=== PATIENT | female | born 1985 | race African-American/Black ===

== ENCOUNTER 2018-08-15 19:50 | Emergency (ER) | payer MEDICAID ==
--- NOTE | 2018-08-15 20:18 | EDM.PDOC ---
ED HPI GENERAL MEDICAL PROBLEM - General Chief Complaint: Abdominal Pain Stated Complaint: PT HAS STOMACH PAINS Time Seen by Provider: 08/15/18 20:14 - History of Present Illness INITIAL COMMENTS - FREE TEXT/NARRATIVE: HISTORY AND PHYSICAL: History of present illness: The patient is a 32-year-old female who presents with lower abdominal pain/ pelvic pain that started 6:30pm yesterday and has been persistent. The patient tells me that she started her menstrual cycle yesterday and today is day 2. The patient tells me that the pain is diffuse in the lower abdomen and does not localize right or left and came on gradually and was not sudden. She has no flank pain no vomiting but does have nausea and no fevers or chills. She has no upper abdominal pain no upper respiratory symptoms and she describes the pain as a cramping aching deep pain. She says it's worse with any movement. The patient does have a significant surgical history for a and bilateral ectopic pregnancies both of which required surgical repair of the tubes. She says she was told by the electrical cad designer she would never get again because of the scarring on the tubes. She says that the period that started yesterday was her regular time and she has not had sexual intercourse for several months. She says she is not using contraception and has not done home test. She tells me that prior to the start of her period yesterday she did not have any abnormal vaginal discharge or vaginal pain. She has no history of ovarian cysts and no other GI history. She says she's been having normal bowel movements are not black or bloody and there is no diarrhea. She has not taken anything but Aleve at home for pain. She tells me that she does not have particularly heavy periods and this one is also not heavy and she does have some cramping but this pain is very different. Review of systems: As per history of present illness and below otherwise all systems reviewed and negative. Past medical history: As per history of present illness and as reviewed below otherwise noncontributory. Surgical history: As per history of present illness and as reviewed below otherwise noncontributory. Social history: No reported history of drug or alcohol abuse. Family history: As per history of present illness and as reviewed below otherwise noncontributory. Physical exam: General: Well-developed well-nourished female who ambulated in the ED but was slightly hunched over on my visual inspection. She seemed uncomfortable with walking. Vital signs are noted by me HEENT: Atraumatic, normocephalic, pupils reactive, negative for conjunctival pallor or scleral icterus, mucous membranes tacky, throat clear, neck supple, nontender, trachea midline. Lungs: Clear to auscultation, breath sounds equal bilaterally, chest nontender. Heart: S1S2, regular rate and rhythm no overt murmurs Abdomen: Soft, nondistended, bowel sounds are very hypoactive and there is some voluntary guarding but no involuntary guarding or rebound with palpation of the lower abdomen. There is some tympany on percussion of the upper abdomen. There is diffuse tenderness in the lower abdomen bilaterally and in the midline but no upper abdominal tenderness. Negative for masses or hepatosplenomegaly. Negative for costovertebral tenderness. Pelvis: Stable nontender. Genitourinary: External genitalia are within normal limits and there is some dark blood in the vault and a small trickle per os. Cervix is nulliparous appearing and there is no gross CMT. The uterus is small and minimally tender and the adnexa are without masses or gross tenderness on palpation. The patient overall is uncomfortable with the exam but more from the abdominal side than from the vaginal side. Rectal: Deferred. Extremities: Atraumatic, full range of motion without defects or deficits Neurovascular unremarkable. Neuro: Awake, alert, oriented. Cranial nerves II through XII unremarkable. Cerebellum unremarkable. Motor and sensory unremarkable throughout. Exam nonfocal. Diagnostics: CBC CMP amylase lipase hCG UA CT scan of the abdomen and pelvis GC and Chlamydia pelvic ultrasound Therapeutics: IV fluids Zofran and morphine I discussed testing results with the patient and have also curb sided Dr. Blair on treatment of pelvic congestion syndrome. She says there is no specific care other than anti-inflammatories and any other symptomatic treatments. I discussed with the patient need for follow-up as this may be a recurrent problem. Impression: Lower abdominal pain/pelvic pain, pelvic congestion syndrome Definitive disposition and diagnosis as appropriate pending reevaluation and review of above. lower abdomen Pain Score (Numeric/FACES): 10 - Related Data Allergies Allergy/AdvReac Type Severity Reaction Status Date / Time No Known Allergies Allergy Verified 08/15/18 20:10 Home Meds: Home Meds Levothyroxine [Synthroid] 1 tab PO DAILY 08/15/18 [History] Past Medical History DRY BOSS History: Reports: Ectopic Other DRY BOSS History: 2 ectopic ; left breast tumor - Past Surgical History Female Surgical History: Reports: Section Social & Family History - Family History Family Medical History: Noncontributory - Tobacco Use Smoking Status *Q: Current Every Day Smoker Years of Tobacco use: 4 Packs/Tins Daily: 1 - Recreational Drug Use Recreational Drug Use: No ED ROS GENERAL - Review of Systems Review Of Systems: ROS reveals no pertinent complaints other than HPI. ED EXAM, GENERAL - Physical Exam Exam: See Below (See dictation) Course - Vital Signs Last Recorded V/S: Last Vital Signs Temp 36.6 C 08/15/18 21:51 Pulse 59 L 08/15/18 21:51 Resp 17 08/15/18 21:51 BP 108/64 08/15/18 21:51 Pulse Ox 98 08/15/18 21:51 - Orders/Labs/Meds Orders: Active Orders 24 hr Category Date Time Status Abdomen Pelvis w Cont [CT] Stat Exams 08/15/18 20:29 Taken Pelvis Non OB Comp [US] Stat Exams 08/15/18 22:19 Taken CHLAMYDIA AND GONORRHEA BY TMA Stat Lab 08/15/18 20:16 Received Sodium Chloride 0.9% [Saline Flush] Med 08/15/18 20:29 Active 10 ml FLUSH ASDIRECTED PRN Sodium Chloride 0.9% [Saline Flush] Med 08/15/18 20:29 Active 2.5 ml FLUSH ASDIRECTED PRN Saline Lock Insert [OM.PC] Stat Oth 08/15/18 20:28 Ordered Medication Orders Sodium Chloride (Saline Flush) 10 ml FLUSH ASDIRECTED PRN PRN Reason: Keep Vein Open Sodium Chloride (Saline Flush) 2.5 ml FLUSH ASDIRECTED PRN PRN Reason: Keep Vein Open Labs: Laboratory Tests 08/15/18 08/15/18 08/15/18 Range/Units 20:10 20:10 20:10 WBC 10.49 (4.0-11.0) K/uL RBC 4.16 L (4.30-5.90) M/uL Hgb 13.7 (12.0-16.0) g/dL Hct 38.9 (36.0-46.0) % MCV 93.5 (80.0-98.0) fL MCH 32.9 H (27.0-32.0) pg MCHC 35.2 (31.0-37.0) g/dL RDW Std Deviation 45.3 (28.0-62.0) fl RDW Coeff of [place] 13 (11.0-15.0) % Plt Count 292 (150-400) K/uL MPV 10.20 (7.40-12.00) fL Neut % (Auto) 56.4 (48.0-80.0) % Lymph % (Auto) 32.0 (16.0-40.0) % [place] % (Auto) 8.7 (0.0-15.0) % Eos % (Auto) 2.5 (0.0-7.0) % Baso % (Auto) 0.4 (0.0-1.5) % Neut # (Auto) 5.9 H (1.4-5.7) K/uL Lymph # (Auto) 3.4 H (0.6-2.4) K/uL [place] # (Auto) 0.9 H (0.0-0.8) K/uL Eos # (Auto) 0.3 (0.0-0.7) K/uL Baso # (Auto) 0.0 (0.0-0.1) K/uL Nucleated RBC % 0.0 /100WBC Nucleated RBCs # 0 K/uL Lactate (0.20-2.00) mmol/L Sodium 138 (136-145) mmol/L Potassium 3.6 (3.5-5.1) mmol/L Chloride 104 (98-107) mmol/L Carbon Dioxide 26.7 (21.0-32.0) mmol/L BUN 7 (7.0-18.0) mg/dL Creatinine 0.9 (0.6-1.0) mg/dL Est Cr Clr Drug Dosing 77.49 mL/min Estimated GFR (MDRD) > 60.0 ml/min Glucose 91 (74-106) mg/dL Calcium 8.8 (8.5-10.1) mg/dL Total Bilirubin 0.6 (0.2-1.0) mg/dL AST 13 L (15-37) IU/L ALT 18 (14-63) IU/L Alkaline Phosphatase 78 (46-116) U/L Total Protein 7.8 (6.4-8.2) g/dL Albumin 4.1 (3.4-5.0) g/dL Globulin 3.7 H (2.0-3.5) g/dL Albumin/Globulin Ratio 1.1 L (1.3-2.8) Amylase 95 (25-115) U/L Lipase 131 (73-393) U/L HCG, Qual NEGATIVE (NEG) Urine Color Urine Appearance Urine pH (5.0-8.0) Ur Specific [place] (1.001-1.035) Urine Protein (NEGATIVE) mg/dL Urine Glucose (UA) (NEGATIVE) mg/dL Urine Ketones (NEGATIVE) mg/dL Urine Occult Blood (NEGATIVE) Urine Nitrite (NEGATIVE) Urine Bilirubin (NEGATIVE) Urine Urobilinogen (<2.0) EU/dL Ur Leukocyte Esterase (NEGATIVE) Urine RBC (0-2/HPF) Urine WBC (0-5/HPF) Ur Epithelial Cells (NONE-FEW) Urine Bacteria (NEGATIVE) Urine Mucus (NONE-MOD) 08/15/18 08/15/18 Range/Units 20:16 20:42 WBC (4.0-11.0) K/uL RBC (4.30-5.90) M/uL Hgb (12.0-16.0) g/dL Hct (36.0-46.0) % MCV (80.0-98.0) fL MCH (27.0-32.0) pg MCHC (31.0-37.0) g/dL RDW Std Deviation (28.0-62.0) fl RDW Coeff of [place] (11.0-15.0) % Plt Count (150-400) K/uL MPV (7.40-12.00) fL Neut % (Auto) (48.0-80.0) % Lymph % (Auto) (16.0-40.0) % [place] % (Auto) (0.0-15.0) % Eos % (Auto) (0.0-7.0) % Baso % (Auto) (0.0-1.5) % Neut # (Auto) (1.4-5.7) K/uL Lymph # (Auto) (0.6-2.4) K/uL [place] # (Auto) (0.0-0.8) K/uL Eos # (Auto) (0.0-0.7) K/uL Baso # (Auto) (0.0-0.1) K/uL Nucleated RBC % /100WBC Nucleated RBCs # K/uL Lactate 1.0 (0.20-2.00) mmol/L Sodium (136-145) mmol/L Potassium (3.5-5.1) mmol/L Chloride (98-107) mmol/L Carbon Dioxide (21.0-32.0) mmol/L BUN (7.0-18.0) mg/dL Creatinine (0.6-1.0) mg/dL Est Cr Clr Drug Dosing mL/min Estimated GFR (MDRD) ml/min Glucose (74-106) mg/dL Calcium (8.5-10.1) mg/dL Total Bilirubin (0.2-1.0) mg/dL AST (15-37) IU/L ALT (14-63) IU/L Alkaline Phosphatase (46-116) U/L Total Protein (6.4-8.2) g/dL Albumin (3.4-5.0) g/dL Globulin (2.0-3.5) g/dL Albumin/Globulin Ratio (1.3-2.8) Amylase (25-115) U/L Lipase (73-393) U/L HCG, Qual (NEG) Urine Color YELLOW Urine Appearance HAZY Urine pH 5.5 (5.0-8.0) Ur Specific [place] >= 1.030 (1.001-1.035) Urine Protein NEGATIVE (NEGATIVE) mg/dL Urine Glucose (UA) NEGATIVE (NEGATIVE) mg/dL Urine Ketones NEGATIVE (NEGATIVE) mg/dL Urine Occult Blood LARGE H (NEGATIVE) Urine Nitrite NEGATIVE (NEGATIVE) Urine Bilirubin NEGATIVE (NEGATIVE) Urine Urobilinogen 0.2 (<2.0) EU/dL Ur Leukocyte Esterase NEGATIVE (NEGATIVE) Urine RBC 3-5 (0-2/HPF) Urine WBC 1-2 (0-5/HPF) Ur Epithelial Cells FEW (NONE-FEW) Urine Bacteria FEW (NEGATIVE) Urine Mucus LIGHT (NONE-MOD) Meds: Medications Generic Name Dose Route Start Last Admin Trade Name Freq PRN Reason Stop Dose Admin Sodium Chloride 10 ml 08/15/18 20:29 Saline Flush FLUSH ASDIRECTED PRN Keep Vein Open Sodium Chloride 2.5 ml 08/15/18 20:29 Saline Flush FLUSH ASDIRECTED PRN Keep Vein Open Discontinued Medications Generic Name Dose Route Start Last Admin Trade Name Rinkuq PRN Reason Stop Dose Admin Sodium Chloride 1,000 mls @ 999 mls/hr 08/15/18 20:29 08/15/18 20:30 Normal Saline IV 08/15/18 21:29 999 mls/hr STAT ONE Administration Iopamidol 80 ml 08/15/18 21:45 08/15/18 21:46 Isovue Multipack-370 (76%) IVPUSH 08/15/18 21:46 80 ml ONETIME ONE Administration Morphine Sulfate 4 mg 08/15/18 20:29 08/15/18 20:35 Morphine IVPUSH 08/15/18 20:30 4 mg ONETIME ONE Administration Ondansetron HCl 4 mg 08/15/18 20:29 08/15/18 20:34 Zofran IVPUSH 08/15/18 20:30 4 mg ONETIME ONE Administration Departure - Departure Time of Disposition: 23:47 Disposition: Home, Self-Care 01 Condition: Good Clinical Impression: Pelvic congestion syndrome, Pelvic pain - Discharge Information Referrals: PCP,None [Primary Care Provider] - Forms: ED Department Discharge Additional Instructions: The following information is given to patients seen in the emergency department who are being discharged to home. This information is to outline your options for follow-up care. We provide all patients seen in our emergency department with a follow-up referral. The need for follow-up, as well as the timing and circumstances, are variable depending upon the specifics of your emergency department visit. If you don't have a primary care physician on staff, we will provide you with a referral. We always advise you to contact your personal physician following an emergency department visit to inform them of the circumstance of the visit and for follow-up with them and/or the need for any referrals to a consulting specialist. The emergency department will also refer you to a specialist when appropriate. This referral assures that you have the opportunity for followup care with a specialist. All of these measure are taken in an effort to provide you with optimal care, which includes your followup. Under all circumstances we always encourage you to contact your private physician who remains a resource for coordinating your care. When calling for followup care, please make the office aware that this follow-up is from your recent emergency room visit. If for any reason you are refused follow-up, please contact the [facility] emergency department at and ask to speak to the emergency department charge nurse. [facility] [address] [phone] Push hydration and rest and continue using [id number] ibuprofen/Aleve per the label instructions and take the tramadol only as needed when you're at home. Please call and schedule a follow-up appointment with a local electrical cad designer for further care and evaluation and you have been given some resources above. Please return to ER as needed and as discussed - My Orders Last 24 Hours: My Active Orders 08/15/18 20:16 CHLAMYDIA AND GONORRHEA BY TMA Stat 08/15/18 20:28 Saline Lock Insert [OM.PC] Stat 08/15/18 20:29 Abdomen Pelvis w Cont [CT] Stat Sodium Chloride 0.9% [Saline Flush] 10 ml FLUSH ASDIRECTED PRN Sodium Chloride 0.9% [Saline Flush] 2.5 ml FLUSH ASDIRECTED PRN 08/15/18 22:19 Pelvis Non OB Comp [US] Stat - Assessment/Plan Last 24 Hours: My Active Orders 08/15/18 20:16 CHLAMYDIA AND GONORRHEA BY TMA Stat 08/15/18 20:28 Saline Lock Insert [OM.PC] Stat 08/15/18 20:29 Abdomen Pelvis w Cont [CT] Stat Sodium Chloride 0.9% [Saline Flush] 10 ml FLUSH ASDIRECTED PRN Sodium Chloride 0.9% [Saline Flush] 2.5 ml FLUSH ASDIRECTED PRN 08/15/18 22:19 Pelvis Non OB Comp [US] Stat
[2018-08-15] MEDS ORDERED: Morphine 2 MG/ML Syringe IVPUSH ONE (20:29)
[2018-08-15] MEDS ORDERED: Sodium Chloride 0.9% 1,000 ML IV ONE (20:29)
[2018-08-15] MEDS ORDERED: Ondansetron 4 MG/2 ML SDV IVPUSH ONE (20:29)
[2018-08-15] MEDS ORDERED: Sodium Chloride 0.9% 2.5 ML Syringe FLUSH PRN (20:29)
[2018-08-15] MEDS ORDERED: Sodium Chloride 0.9% 10 ML Syringe FLUSH PRN (20:29)
[2018-08-15 20:52] LABS: CHLORIDE,CL 104 mmol/L (98-107); SODIUM,NA 138 mmol/L (136-145)
[2018-08-15] MEDS ORDERED: Iopamidol 755 MG/ML 200 ML Multipack Bottle IVPUSH ONE (21:45)
--- NOTE | 2018-08-18 09:21 | CT ---
EXAM DATE: 08/15/18 PATIENT'S AGE: 32 Patient: MURIEL BENAVIDEZ Facility: [place], [place] Site . Site : 1985 Study: CT Abdomen/Pelvis W CONT [id number]/15/2018 9:44:49 PM Ordering Physician: Isrrael Cervantes Final Report: INDICATION: Lower abdominal pain. TECHNIQUE: CT of abdomen pelvis performed after IV injection of 80 mL of Isovue-370. FINDINGS: Calcified splenic granuloma consist with prior granulomatous disease. Excretion of contrast into the urinary system including both internal collecting system and portions of both ureters. Moderate collateral vessels in the left adnexa as well as enlargement of left gonadal vein could be related to pelvic congestion syndrome but is fairly nonspecific. Small cyst or follicle in the right ovary. Small amount of free fluid in the pelvis posteriorly likely physiologic. Appendix is normal. Remainder negative. IMPRESSION: 1. No acute disease in the abdomen or pelvis. 2. Small amount of free fluid in the pelvis posteriorly may be physiologic. 3. Enlargement of the left gonadal vein with collateral vessels in the left adnexa of moderate degree could be related to a pelvic congestion syndrome but is nonspecific. Please note that all CT scans at this facility use dose modulation, iterative reconstruction, and/or weight-based dosing when appropriate to reduce radiation dose to as low as reasonably achievable. Dictated by Rojelio Lopez MD @ Aug 15 2018 10:11PM (Electronic Signature) Report Signed by Proxy. JESUS
--- NOTE | 2018-08-18 09:28 | US ---
EXAM DATE: 08/15/18 PATIENT'S AGE: 32 Patient: MURIEL BENAVIDEZ Facility: [place], [place] Site . Site : 1985 Study: US Pelvis [id number]/15/2018 11:18:22 PM Ordering Physician: Isrrael Cervantes Final Report: INDICATION: Generalized pelvic pain. COMPARISON: CT of the pelvis from earlier today FINDINGS: Transvaginal ultrasound examination of the female pelvis was performed. The uterus is anteverted with no evidence of mass. It measures 9.8 x 4.6 x 5.7 cm. The endometrial lining is normal in thickness at 6 mm. The right ovary is normal in appearance. The left ovary contains a small, heterogeneous isoechoic region measuring 1.3 x 1.4 x 1.0 centimeters which is probably a hemorrhagic cyst The ovaries are normal in size, the right measuring 2.1 x 1.2 x 2.4 cm and the left measuring 2.2 x 1.8 x 1.4 cm. There is normal color Doppler flow in both ovaries. There is fullness of pelvic vessels in the adnexal regions bilaterally, corresponding to the appearance on CT. This could represent pelvic congestion syndrome. There is no sign of free fluid in the pelvis. IMPRESSION: ULTRASOUND OF THE PELVIS SHOWS PROMINENCE OF VESSELS IN BOTH ADNEXAL REGIONS, POSSIBLE PELVIC CONGESTION SYNDROME. SMALL COMPLEX CYST IN THE LEFT OVARY, PROBABLY HEMORRHAGIC CYST, MEASURING UP TO 1.3 CENTIMETERS IN DIAMETER. NORMAL APPEARANCE OF THE RIGHT OVARY AND UTERUS NO SIGN OF ANY FREE FLUID. Dictated by Boyd Metz MD @ Aug 15 2018 11:32PM (Electronic Signature) Report Signed by Proxy. JESUS
== END 2018-08-16 00:09 | disposition home or self-care (01) ==
LOC: MW.ED 19:50
DX: N94.89 Other specified conditions associated with female genital organs and menstrual cycle (principal); F17.210 Nicotine dependence, cigarettes, uncomplicated; Z79.899 Other long term (current) drug therapy
CPT/HCPCS: 36415; 74177; 76856; 80053; 81001; 82150; 83605; 83690; 84703; 85025; 87491; 87591; 96361; 96374; 96375; 99284; J2270; J2405; J7040; Q9967